=== PATIENT | male | born 1975 | race American Indian/Alaskan Native ===

== ENCOUNTER 2021-10-02 12:50 | Outpatient (CLI) | payer OTHER ==
--- NOTE | 2021-10-02 14:59 | XRay Report ---
LUMBAR SPINE 5 VIEWS RIGHT HIP AND PELVIS 2 VIEWS INDICATION: LOW BACK PAIN.. Right hip pain COMPARISON: No relevant prior imaging study available. FINDINGS: Lumbar spine: Disc space height is maintained. There are small marginal osteophytes. There is lower l umbar facet arthropathy. Vertebral body height is maintained. Alignment is normal. The oblique views there appears to be unilateral spondylolysis at L5. SI joints are within normal limits. Right hip/pelvis: No acute skeletal abnormality. Os acetabuli are noted bilaterally, larger on the ri ght. There is mild superior joint space narrowing at the hips bilaterally. IMPRESSION: 1. No acute findings. 2. Mild spondylosis and degenerative changes as above. 3. Unilateral spondylolysis on the left at L5. No listhesis. Signer Name: Sagar Barboza MD Signed: 10/02/2021 2:55 PM Workstation Name: [employer]
== END 2021-10-02 12:51 | disposition home or self-care (01) ==
LOC: XRAY 12:50
PROVIDERS: ATTEND Internal Medicine
DX: M16.0 Bilateral primary osteoarthritis of hip (principal); M54.9 Dorsalgia, unspecified; M25.751 Osteophyte, right hip; M47.816 Spondylosis without myelopathy or radiculopathy, lumbar region
CPT/HCPCS: 72110

== ENCOUNTER 2021-12-25 09:29 | Outpatient (CLI) | payer OTHER ==
[2021-12-28 13:54] LABS: CD4/CD8 Ratio 1.31 (0.86-5.00)
== END 2021-12-25 09:30 | disposition home or self-care (01) ==
LOC: LAB 09:29
PROVIDERS: ATTEND Internal Medicine
DX: Z02.71 Encounter for disability determination (principal)
CPT/HCPCS: 36415; 82024